=== PATIENT | female | born 1975 | race African-American/Black ===

== ENCOUNTER 2021-12-16 14:56 | Observation (INO) | payer OTHER, SELFPAY ==
[2021-12-16] MEDS ORDERED: Aspirin Chewable 81 MG TAB ONE (16:01)
[2021-12-16] MEDS ORDERED: Nitroglycerin 0.4 MG TAB 1 EACH ONE (16:01)
[2021-12-16 16:14] LABS: #Eosinphils 0.1 10x3/uL (0.0-0.5); #Monocytes 0.7 10x3/uL (0.0-1.1); #Neutrophils 7.4 10x3/uL (1.5-8.4); %Basophils 0.2 % (0.0-2.0); %Eosinophils 1.2 % (0.0-6.0); %Lymphocytes 22.2 % (18.0-47.0); %Monocytes 6.5 % (0.0-10.0); %Neutrophils 69.6 % (40.0-75.0); Mean Corpuscular Hemoglobin 27.2 pg (27.0-33.0); Mean Corpuscular Volume 87.9 fl (81.6-98.3); Mean Platelet Volume 10.1 fl (7.4-10.4); Platelet Count 301 10x3/uL (150-450); RBC Distribution Width 14.9 % (11.5-14.5); Red Blood Cell (RBC) Count 4.04 10x6/uL (3.90-5.03); White Blood Cell (WBC) Count 10.7 10x3/uL (3.5-10.5)
[2021-12-16 16:32] LABS: ALT (SGPT) 18 U/L (8-55); AST (SGOT) 23 U/L (5-34); Alkaline Phosphatase 59 U/L (40-110); Anion Gap 14 mmol/L (10-20); BUN (Urea Nitrogen) 11 mg/dL (7.0-18.7); Bilirubin, Total 0.3 mg/dL (0.2-1.2); Calc. Creatinine Clearance 0 mL/min (70-130); Calcium 9.2 mg/dL (7.8-10.44); Carbon Dioxide 18 mmol/L (22-29); Chloride 108 mmol/L (98-107); Globulin 3.9 g/dL (2.4-3.5); Glucose 91 mg/dL (70-105); Potassium 4.4 mmol/L (3.5-5.1); Protein, Total 7.9 g/dL (6.0-8.3); Sodium 136 mmol/L (136-145)
[2021-12-16] MEDS ORDERED: Ondansetron PF 4 MG/2 ML Vial IVP PRN (18:03)
[2021-12-16] MEDS ORDERED: HYDROcodone/Acetaminophen 10/325 mg Tablet PO PRN (18:03)
[2021-12-16] MEDS ORDERED: Nitroglycerin 0.4 MG TAB (25 Tab Bottle) SL PRN (18:05)
[2021-12-16] MEDS ORDERED: Albuterol 200 PUFF (6.7GM INHALER) INH PRN (18:05)
[2021-12-16 19:12] LABS: SARS-CoV-2 NAA Rapid Test Not Detected (NotDetected)
[2021-12-16 20:08] LABS: Troponin I Less than 0.010 ng/mL (< 0.028)
[2021-12-16] MEDS ORDERED: Acetaminophen 325 MG TAB ONE (22:25)
[2021-12-16 22:49] LABS: Troponin I Less than 0.010 ng/mL (< 0.028)
[2021-12-17 00:15] VITALS: BMI 41.6
[2021-12-17] MEDS: Atorvastatin Calcium 40 MG TAB PO SCH ×2 (01:06→20:58)
[2021-12-17] MEDS: Famotidine 20 MG TAB PO SCH ×3 (01:06→20:58)
[2021-12-17 06:55] LABS: Anion Gap 14 mmol/L (10-20); BUN (Urea Nitrogen) 11 mg/dL (7.0-18.7); Calc. Creatinine Clearance 154 mL/min (70-130); Calcium 8.8 mg/dL (7.8-10.44); Carbon Dioxide 21 mmol/L (22-29); Chloride 105 mmol/L (98-107); Glucose 97 mg/dL (70-105); Sodium 136 mmol/L (136-145)
[2021-12-17 07:11] LABS: #Eosinphils 0.2 10x3/uL (0.0-0.5); #Monocytes 0.7 10x3/uL (0.0-1.1); #Neutrophils 6.5 10x3/uL (1.5-8.4); %Basophils 0.3 % (0.0-2.0); %Eosinophils 1.7 % (0.0-6.0); %Lymphocytes 28.6 % (18.0-47.0); %Monocytes 6.8 % (0.0-10.0); %Neutrophils 62.5 % (40.0-75.0); Hemoglobin 10.7 g/dL (12.0-15.5); Mean Corpuscular HGB CONC 30.7 g/dL (32.0-36.0); Mean Corpuscular Hemoglobin 27.2 pg (27.0-33.0); Mean Corpuscular Volume 88.3 fl (81.6-98.3); Mean Platelet Volume 10.5 fl (7.4-10.4); Platelet Count 285 10x3/uL (150-450); RBC Distribution Width 14.9 % (11.5-14.5); Red Blood Cell (RBC) Count 3.94 10x6/uL (3.90-5.03); White Blood Cell (WBC) Count 10.3 10x3/uL (3.5-10.5)
[2021-12-17] MEDS ORDERED: Furosemide 20 MG TAB PO SCH ×2 (09:00)
[2021-12-17] MEDS: Aspirin 81 mg Enteric Coated Tablet PO SCH (09:02)
[2021-12-17] MEDS: Enoxaparin Sodium 30 MG/0.3 ML SYRINGE SC SCH (09:03)
[2021-12-17 12:07] LABS: Hemoglobin A1c 6.3 % (4.0-6.0)
[2021-12-17] MEDS ORDERED: Fentanyl 100 MCG/2 ML VIAL ONE (13:53)
[2021-12-17] MEDS ORDERED: Midazolam HCl 2 mg/2 ml Vial ONE (13:53)
[2021-12-17] MEDS ORDERED: Heparin 10,000 UNITS/ 10 ML VIAL ONE (13:56)
[2021-12-17] MEDS ORDERED: Lidocaine 1% (PF) 30 ML VIAL ONE (13:56)
[2021-12-17] MEDS ORDERED: Adenosine 6 MG/2 ML VIAL ONE (13:56)
[2021-12-17 14:41] LABS: Cardiac Risk 2.9 (Less than 4.5)
[2021-12-17] MEDS ORDERED: Nitroglycerin 0.4 MG TAB (25 Tab Bottle) SL PRN (15:27)
[2021-12-17] MEDS ORDERED: Sodium Chloride 0.9% 200 ML IV PRN (15:27)
[2021-12-17] MEDS ORDERED: Acetaminophen/Codeine 30-300mg Tablet PO PRN (15:27)
[2021-12-17] MEDS ORDERED: Sodium Chloride 0.9% 1,000 ML IV SCH (15:30)
[2021-12-17] MEDS: Acetaminophen/Codeine 30-300mg Tablet PO PRN (20:58)
[2021-12-18] MEDS: Acetaminophen/Codeine 30-300mg Tablet PO PRN (03:46)
[2021-12-18] MEDS: Aspirin 81 mg Enteric Coated Tablet PO SCH (08:42)
[2021-12-18] MEDS: Famotidine 20 MG TAB PO SCH (08:42)
[2021-12-18] MEDS: Enoxaparin Sodium 30 MG/0.3 ML SYRINGE SC SCH (08:45)
[2021-12-18] MEDS: Acetaminophen 325 MG TAB PO PRN ×2 (09:00→14:23)
[2021-12-18] MEDS ORDERED: Triamterene/Hydrochlorothiazide TAB PO SCH (09:00)
[2021-12-18 09:28] VITALS: TEMP 98
[2021-12-18 13:05] VITALS: BP 109/80
== END 2021-12-18 19:00 | disposition home or self-care (01) ==
LOC: CSHERS 14:56 → CSHTELE 23:42
PROVIDERS: ADMIT Internal Medicine; ATTEND Internal Medicine
DX: R07.9 Chest pain, unspecified (principal); J45.909 Unspecified asthma, uncomplicated; I10 Essential (primary) hypertension; R73.03 Prediabetes; G89.4 Chronic pain syndrome; Z79.899 Other long term (current) drug therapy; Z79.82 Long term (current) use of aspirin; Z79.84 Long term (current) use of oral hypoglycemic drugs; Z20.822 Contact with and (suspected) exposure to COVID-19
CPT/HCPCS: 36415; 71045; 71275; 80048; 80053; 80061; 82306; 83036; 84484; 85025; 85379; 93005; 93306; 93458; 94664; 94760; 96372; 99152; G0378; J0153; J1644; J1650; J2001; J2250; J3010; J7050; U0002

== ENCOUNTER 2024-09-02 18:25 | Emergency (ER) | payer OTHER ==
[2024-09-02] MEDS ORDERED: Dexamethasone 10 MG/ML VIAL ONE (19:51)
[2024-09-02] MEDS ORDERED: Ketorolac Tromethamine 30 MG (1 mL) VIAL ONE (19:51)
== END 2024-09-02 20:23 | disposition home or self-care (01) ==
LOC: CSHERS 18:25
DX: M54.42 Lumbago with sciatica, left side (principal); I10 Essential (primary) hypertension
CPT/HCPCS: 96372; J1100; J1885